=== PATIENT | male | born 1950 | race Caucasian/White ===

== ENCOUNTER 2021-01-11 17:56 | Emergency (ER) | payer MEDICARE, BC ==
[2021-01-11] MEDS ORDERED: HYDROmorphone 0.5 MG/0.5 ML Syringe IVPUSH ONE (18:15)
[2021-01-11] MEDS ORDERED: ceFAZolin 1 GM in Premix Bag 1 BAG IV ONE (18:24)
--- NOTE | 2021-01-11 18:40 | EDM.PDOC ---
ED HPI GENERAL MEDICAL PROBLEM - General Chief Complaint: Laceration Stated Complaint: CUT FINGERS ON LEFT HAND Time Seen by Provider: 01/11/21 18:11 Source of Information: Reports: Patient History Limitations: Reports: No Limitations - History of Present Illness INITIAL COMMENTS - FREE TEXT/NARRATIVE: Tono is a 70-year-old male presenting to the ED for evaluation of a leak deep laceration to his left index and middle finger. Patient was working on a table saw tonight making a dog house and was cutting a fairly narrow strip of wood on the table saw. He was using a push stick to push the boards through the blade, however, he underestimated the clearance between the push stick and his hand causing a deep incision to the dorsal middle finger at the DIP and index finger proximal to the DIP. He appears to have cut into the joint and through the extensor tendon. Bleeding is currently at and oozing of blood. He does have numbness in the distal fingers #2 and 3. The patient is up-to-date on his tetanus with his last being on 05/22/2020. - Related Data Allergies Allergy/AdvReac Type Severity Reaction Status Date / Time No Known Allergies Allergy Verified 01/11/21 18:13 Home Meds: Home Meds Aspirin 81 mg PO DAILY 01/11/21 [History] Pravastatin [Pravachol] 40 mg PO DAILY 01/11/21 [History] Past Medical History - Past Health History Medical/Surgical History: Denies Medical/Surgical History HEENT History: Reports: Impaired Vision - Infectious Disease History Infectious Disease History: Reports: Chicken Pox Social & Family History - Tobacco Use Tobacco Use Status *Q: Never Tobacco User - Caffeine Use Caffeine Use: Reports: Coffee, Soda, Tea - Recreational Drug Use Recreational Drug Use: No ED ROS GENERAL - Review of Systems Review Of Systems: See Below Constitutional: Reports: No Symptoms HEENT: Reports: No Symptoms Respiratory: Reports: No Symptoms Cardiovascular: Reports: No Symptoms Endocrine: Reports: No Symptoms GI/Abdominal: Reports: No Symptoms : Reports: No Symptoms Musculoskeletal: Reports: Other (Deep laceration across the dorsal left second and third fingers at the level of the DIP causing loss of extension of the third finger and numbness distal to the laceration.) Skin: Reports: No Symptoms Neurological: Reports: Numbness (Numbness in the distal segments of the third left finger) Psychiatric: Reports: No Symptoms Hematologic/Lymphatic: Reports: No Symptoms Immunologic: Reports: No Symptoms ED EXAM, SKIN/RASH Exam: See Below Exam Limited By: No Limitations General Appearance: Alert, Mild Distress Head: Atraumatic, Normocephalic Neck: Normal Inspection Respiratory/Chest: No Respiratory Distress, Lungs Clear, Normal Breath Sounds Cardiovascular: Normal Peripheral Pulses, Regular Rate, Rhythm Peripheral Pulses: 2+: Radial (L), Radial (R) GI/Abdominal: Normal Bowel Sounds, Soft, Non-Tender Back Exam: Normal Inspection, Full Range of Motion Extremities: Limited Range of Motion (Unable to extend the distal segment of the left third finger.), Other (Moderately deep laceration on the dorsal left second finger with intact flexion and extension. Deep laceration on the dorsal left third finger with the distal segment being flexed and unable to be extended, distal numbness, and exposed bone.) Neurological: Alert, Oriented, Normal Cognition, Sensory/Motor Deficit (De creased sensation in the distal aspect of the left third finger.) Psychiatric: Normal Affect Skin: Warm, Wound/Incision (Open fracture distal third finger on the left.) Location, Skin: Upper Extremity, Left Lymphatic: No Adenopathy #1 Interpretation EKG Date: 01/11/21 Time: 18:53 Rhythm: NSR Rate (Beats/Min): 73 [place]: Normal P-Wave: Present QRS: Normal ST-T: Normal QT: Normal Comparison: NA - No Prior EKG Course - Vital Signs Last Recorded V/S: Last Vital Signs Temp 36.5 C 01/11/21 18:13 Pulse 71 01/11/21 18:13 Resp 16 01/11/21 18:13 BP 172/100 H 01/11/21 18:13 Pulse Ox 97 01/11/21 18:13 - Orders/Labs/Meds Orders: Active Orders 24 hr Category Date Time Status EKG Documentation Completion [RC] ASDIRECTED Care 01/11/21 18:44 Active Fingers Multiple Lt [CR] Stat Exams 01/11/21 18:16 Taken Sodium Chloride 0.9% [Saline Flush] Med 01/11/21 18:15 Active 10 ml FLUSH ASDIRECTED PRN Saline Lock Insert [OM.PC] Routine Oth 01/11/21 18:15 Ordered EKG 12 Lead [EK] Routine Ther 01/11/21 18:44 Ordered Medication Orders Sodium Chloride (Sodium Chloride 0.9% 10 Ml Syringe) 10 ml FLUSH ASDIRECTED PRN PRN Reason: Keep Vein Open Last Admin: 01/11/21 18:59 Dose: 10 ml Documented by: WADE Labs: Laboratory Tests 01/11/21 Range/Units 18:53 SARS CoV-2 RNA Rapid SUBHA Negative Meds: Medications Generic Name Dose Route Start Last Admin Trade Name Freq PRN Reason Stop Dose Admin Sodium Chloride 10 ml 01/11/21 18:15 01/11/21 18:59 Sodium Chloride 0.9% 10 Ml Syringe FLUSH 10 ml ASDIRECTED PRN Administration Keep Vein Open Discontinued Medications Generic Name Dose Route Start Last Admin Trade Name Freq PRN Reason Stop Dose Admin Cefazolin Sodium Confirm 01/11/21 18:47 01/11/21 18:54 Cefazolin 1 Gm Vial Administered 01/11/21 18:48 1 gm Dose Administration 1 gm .ROUTE .STK-MED ONE Hydromorphone HCl 0.5 mg 01/11/21 18:15 01/11/21 18:50 Hydromorphone 0.5 Mg/0.5 Ml Syringe IVPUSH 01/11/21 18:16 0.5 mg ONETIME ONE Administration Cefazolin Sodium/Dextrose 1 gm 50 mls @ 100 mls/hr 01/11/21 18:24 01/11/21 18:58 / Premix IV 01/11/21 18:53 100 mls/hr ONETIME ONE Administration Sodium Chloride Confirm 01/11/21 18:47 01/11/21 18:54 Normal Saline Administered 01/11/21 18:48 50 mls/hr Dose Administration 50 mls @ as directed .ROUTE .STK-MED ONE Lidocaine HCl 5 ml 01/11/21 18:11 Lidocaine 1% 5 Ml Sdv INJECT 01/11/21 18:12 ONETIME ONE - Re-Assessments/Exams Free Text/Narrative Re-Assessment/Exam: 01/11/21 18:59 initially, we just placed a loose dressing on the wound for bleeding and support, x-rays were obtained showing destruction of the middle portion of the third phalanx on the left just below the DIP. There is also a small tuft fracture on the distal left second phalanx. I discussed the case with the orthopedic service at [facility] who will plan on taking the patient to the operating room in the morning. We did initial preliminary testing including COVID-19 and EKG. Because of the delay to the OR, we did do a washout of the wounds with normal saline. An Adaptic dressing was then placed over the wounds and loose gauze and Curlex was applied over this. The patient is up-to-date on his tetanus status with his last Tdap being 05/22/2020. He did receive a gram of Ancef IV prophylactically. FABIANO Dumont accepts the patient in transfer to [facility]. I did discuss with the patient that he will likely end up with an amputation of the distal segment of the third finger due to the destruction of the joint. Son will take him to [facility] in preparation for surgery in the morning. The patient and his family are in agreement with the plan and all questions were answered prior to transfer. 01/11/21 19:13 COVID-19 test is negative. Departure - Departure Time of Disposition: 19:13 Disposition: DC/Tfer to Acute Hospital 02 Clinical Impression: Open fracture of finger of left hand Qualifiers: Encounter type: initial encounter Finger: middle finger Phalanx: distal Fracture alignment: displaced Qualified Code(s): S62.633B - Displaced fracture of distal phalanx of left middle finger, initial encounter for open fracture Laceration of finger of left hand with tendon involvement Qualifiers: Encounter type: initial encounter Qualified Code(s): S61.219A - Laceration without foreign body of unspecified finger without damage to nail, initial encounter Laceration of finger of left hand Qualifiers: Encounter type: initial encounter Finger: index finger Damage to nail status: without damage Foreign body presence: without foreign body Qualified Code(s): S61.211A - Laceration without foreign body of left index finger without damage to nail, initial encounter - Discharge Information *PRESCRIPTION DRUG MONITORING PROGRAM REVIEWED*: Not Applicable *COPY OF PRESCRIPTION DRUG MONITORING REPORT IN PATIENT STEPHEN: Not Applicable Referrals: PCP,None [Primary Care Provider] - Forms: ED Department Discharge Sepsis Event Note (ED) - Evaluation Sepsis Screening Result: No Definite Risk - Focused Exam Vital Signs: Vital Signs Temp Pulse Resp BP Pulse Ox 01/11/21 18:13 36.5 C 71 16 172/100 H 97 01/11/21 18:07 36.5 C 71 16 172/100 H 97 - Problem List & Annotations (1) Laceration of finger of left hand with tendon involvement SNOMED Code(s): 32825705, 128278933, [id number] Code(s): S61.219A - LACERATION W/O FB OF UNSP FINGER W/O DAMAGE TO NAIL, INIT Status: Acute Priority: Medium Current Visit: Yes Qualifiers: Encounter type: initial encounter Qualified Code(s): S61.219A - Laceration without foreign body of unspecified finger without damage to nail, initial encounter (2) Open fracture of finger of left hand SNOMED Code(s): 69207976, 366468208, [id number] Code(s): S62.609B - FRACTURE OF UNSP PHALANX OF UNSP FINGER, INIT FOR OPN FX Status: Acute Priority: Medium Current Visit: Yes Qualifiers: Encounter type: initial encounter Finger: middle finger Phalanx: distal Fracture alignment: displaced Qualified Code(s): S62.633B - Displaced fracture of distal phalanx of left middle finger, initial encounter for open fracture (3) Laceration of finger of left hand SNOMED Code(s): 164677461, 64021324422432533 Code(s): S61.219A - LACERATION W/O FB OF UNSP FINGER W/O DAMAGE TO NAIL, INIT Status: Acute Priority: Medium Current Visit: Yes Qualifiers: Encounter type: initial encounter Finger: index finger Damage to nail status: without damage Foreign body presence: without foreign body Qualified Code(s): S61.211A - Laceration without foreign body of left index finger without damage to nail, initial encounter - Problem List Review Problem List Initiated/Reviewed/Updated: Yes - My Orders Last 24 Hours: My Active Orders 01/11/21 18:15 Sodium Chloride 0.9% [Saline Flush] 10 ml FLUSH ASDIRECTED PRN Saline Lock Insert [OM.PC] Routine 01/11/21 18:16 Fingers Multiple Lt [CR] Stat 01/11/21 18:44 EKG Documentation Completion [RC] ASDIRECTED EKG 12 Lead [EK] Routine - Assessment/Plan Last 24 Hours: My Active Orders 01/11/21 18:15 Sodium Chloride 0.9% [Saline Flush] 10 ml FLUSH ASDIRECTED PRN Saline Lock Insert [OM.PC] Routine 01/11/21 18:16 Fingers Multiple Lt [CR] Stat 01/11/21 18:44 EKG Documentation Completion [RC] ASDIRECTED EKG 12 Lead [EK] Routine
[2021-01-11] MEDS ORDERED: ceFAZolin 1 GM Vial ONE (18:47)
[2021-01-11] MEDS ORDERED: Sodium Chloride 0.9% 50 ML ONE (18:47)
[2021-01-11] MEDS: Sodium Chloride 0.9% 10 ML Syringe FLUSH PRN ×2 (18:59→19:29)
--- NOTE | 2021-01-13 09:08 | CR ---
Fingers Multiple Lt CLINICAL HISTORY: Open fractures FINDINGS: There is soft tissue disruption of the distal aspect of the second and third digits. There is a comminuted fracture of the second distal phalanx. There is a fracture at the distal aspect of the third middle phalanx with dorsal dislocation. Impression: Fractures of the second and third digits
== END 2021-01-11 19:35 ==
LOC: JP.ED 17:56
DX: S62.633B Displaced fracture of distal phalanx of left middle finger, initial encounter for open fracture (principal); S61.211A Laceration without foreign body of left index finger without damage to nail, initial encounter; Z20.822 Contact with and (suspected) exposure to COVID-19; W27.0XXA Contact with workbench tool, initial encounter
CPT/HCPCS: 73140-26-LT; 73140-LT; 93005; 96365; 96375; 99284; 99285-25; J0690; J1170; U0002